=== PATIENT | female | born 1990 | race African-American/Black ===

== ENCOUNTER 2018-11-14 21:23 | Emergency (ER) | payer MEDICAID ==
[~2018-11-14] VITALS: Ht 162.6 cm; Wt 78.0 kg
[2018-11-14] MEDS ORDERED: METHOCARBAMOL 500MG TABLET PO ONE (23:15)
[2018-11-14] MEDS ORDERED: KETOROLAC 15MG/ML VIAL IM ONE (23:15)
[2018-11-15 00:32] VITALS: BP 104/65
== END 2018-11-15 03:58 | disposition home or self-care (01) ==
LOC: ER 21:23
DX: M25.511 Pain in right shoulder (principal); M54.2 Cervicalgia; R03.0 Elevated blood-pressure reading, without diagnosis of hypertension; Z86.711 Personal history of pulmonary embolism
CPT/HCPCS: 73030; 96372; 99283; J1885